=== PATIENT | male | born 1980 | race Caucasian/White ===

== ENCOUNTER → 2017-02-13 | Outpatient (CLI) | payer BC ==
[~2017-02-13] MED LIST: CLR10 PO; ENOX1INJ9 SQ; MULT-506 PO; OXYC-57 PO
== END | disposition home or self-care (01) ==
LOC: C.RDSM 13:13
PROVIDERS: ATTEND Physical Medicine & Rehabilitation Sports Medicine
DX: M25.562 Pain in left knee (principal)

== ENCOUNTER → 2017-02-20 | Outpatient (CLI) | payer BC ==
--- NOTE | 2017-02-20 10:11 | DIAGNOSTIC IMAGING REPORT ---
ORBIT RADIOGRAPHS 3 VIEWS HISTORY: pre-MRI screening. COMPARISON: None. FINDINGS: There are no radiopaque foreign bodies identified within the orbits. IMPRESSION: No radiopaque foreign bodies identified within the orbits. Electronically signed by: Taco Gayle M.D. 02/20/2017 10:10 AM Dictated Date/Time: 02/20/2017 10:09 AM
--- NOTE | 2017-02-20 11:39 | DIAGNOSTIC IMAGING REPORT ---
LEFT LOWER EXT JOINT WITHOUT CLINICAL HISTORY: LEFT KNEE PAIN trauma TECHNIQUE: MRI multi axial acquisition COMPARISON STUDY: None FINDINGS: Signal characteristics the osseous structures are unremarkable. A joint effusion is present. There is evidence for prior anterior cruciate ligament repair. There is a high-grade partial/near complete tear of the graft. Posterior cruciate ligament is intact. There is a suprapatellar joint effusion with several synechiae. The patellar articulating surface is intact. The evaluation of the medial compartment demonstrates a focal loss of articular services measuring 7 x 9 mm in maximum cross-sectional dimension of the mid femoral condylar surface. There is slight flattening of the anterior articular services of the lateral femoral condyle compartment but no significant loss of articular surface is present. Medial and lateral menisci appear unremarkable. The collateral ligaments appear intact. IMPRESSION: 1. High-grade partial/near complete tear of the patient's anterior cruciate ligament graft 2. Joint effusion with several suprapatellar synechiae. 3. Focal loss of articular surface of the mid medial femoral condyle with a maximum surface dimension of 9 x 7 mm 4. Slight impaction deformity anterior margin lateral femoral condyle 5. Several small loose bodies primarily of the medial compartment. The above report was generated using voice recognition software. It may contain grammatical, syntax or spelling errors. Electronically signed by: Riccardo Sheets M.D. 02/20/2017 11:37 AM Dictated Date/Time: 02/20/2017 11:27 AM
== END | disposition home or self-care (01) ==
LOC: C.RAD 09:46
PROVIDERS: ATTEND Physical Medicine & Rehabilitation Sports Medicine
DX: S83.512A Sprain of anterior cruciate ligament of left knee, initial encounter (principal); X58.XXXA Exposure to other specified factors, initial encounter

== ENCOUNTER → 2017-04-19 | Day surgery (SDC) | payer BC ==
[2017-03-21 11:32] VITALS: Ht 180.3 cm; Wt 106.8 kg
[~2017-04-19] VITALS: Ht 180.3 cm; Wt 106.8 kg
[~2017-04-19] MED LIST changes: +ATROPINE SULFATE 0.1 MG/ML 5ML SYR IV PRN; +CEFAZOLIN 1000MG/55 ML D5W 55 ML IV SCH; +CEFAZOLIN 2000 MG/60 ML D5W IV SCH; +CEFAZOLIN SOD 1 GM VIAL ONE; +DEXAMETHASONE SOD INJ 4 MG/ML VIAL ONE; +EpHEDrine SULFATE INJ 50 MG/ML AMP IV PRN; +EpINEphrine HCL INJ 1 MG/ML 5ML SYRINGE ONE; +FENTANYL CITRATE INJ 50 MCG/1 ML 2 ML VIAL IV PRN; +FENTANYL CITRATE INJ 50 MCG/1 ML 2 ML VIAL ONE; +HYDROmorphone INJ 1 MG/ML SYR IV PRN; +LACTATED RINGER'S 1000ML 1,000 ML IV SCH; +LIDOCAINE HCL 1% MPF 2 ML VIAL ONE; +LIDOCAINE HCL 2% 2 ML VIAL (20MG/ML) ONE; +LIDOCAINE/EPINEPHRINE 1% INJ 50 ML VIAL ONE; +MIDAZOLAM HCL 1 MG/ML 2ML VIAL ONE; +MoRPHine SULFATE 2 MG/ML CARP IV PRN; +MoRPHine SULFATE 4 MG/ML 1 ML CARP\\VIAL IV PRN; +ONDANSETRON INJ 2 MG/ML 2 ML VIAL IV PRN; +ONDANSETRON INJ 2 MG/ML 2 ML VIAL ONE; +OXYCODONE/ACETAMINOPHEN 5-325 TAB PO PRN; +PROMETHAZINE HCL INJ 12.5 MG in SODIUM CHLORIDE 0.9% 50ML 50 ML IV PRN; +PROPOFOL IV EMULSION 10 MG/ML 20 ML VIAL IV ONE; +ROPIVACAINE 0.5% 5 MG/ML 30 ML VIAL ONE; +SODIUM CHLORIDE 0.9% 1000ML 1,000 ML IV SCH; +TRAMADOL HCL 50 MG TAB ONE
--- NOTE | 2017-04-19 08:17 | History & Physical Bridge Note ---
H&P Re-Evaluation Bridge Note: I have examined the patient, reviewed the History & Physical and in the interval since the performance of the History & Physical I have noted the following changes of clinical significance: No changes noted
--- NOTE | 2017-04-19 13:01 | [facility] Operative Report ---
Operative Report Operative Date Apr 19, 2017. 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 Rupture of Anterior Cruciate Ligament reconstruction graft. Post-Operative Diagnosis same as preop Procedure(s) Performed Left Knee Arthroscopy, bone grafting of femoral and tibial anterior cruciate ligament tunnels, partial lateral menisectomy, extensive debridement Surgeon Dr. Buenrostro Cone Machine Operator Surgeon(s) QUINN Torres Estimated Blood Loss 50 mL Findings Complete rupture of left knee anterior cruciate ligament graft. Longitudinal white on white lateral meniscus tear. Lysis of the tibial greater than femoral tunnel. Medial meniscal deficiency. 15 mm x 25 mm grade 3 and 4 chondrosis medial femoral condyle. Specimens none per surgeon Drains none Anesthesia laryngeal mask with peripheral nerve block Complication(s) None Disposition Recovery Room / PACU Implants Allogenic bone graft Indications Since a 36-year-old male status post anterior cruciate ligament reconstruction. He has reported knee pain. He is status post a partial medial meniscectomy previously. His evaluation shows clinical insufficiency of the anterior cruciate ligament ligament graft. There is not accessory ligament damage. He does not have radiographic arthrosis but the MRI shows absence of the medial meniscus and medial compartment chondrosis. His alignment is relatively neutral. The femoral tunnel is not terribly lytic. Biointerference screws were utilized previously with a patellar tendon autograft. The tibial tunnel is notably lytic and has a AP sagittal diameter of approximately 14 mm on MRI. I discussed with the patient options including proximal tibial osteotomy to offload his disease medial compartment. Revision anterior cruciate ligament reconstruction. I informed him that because of the lysis of the tunnel that bone grafting and a staged procedure may be necessary. Description of Procedure Informed consent was obtained. The patient identified as Lyle. He identified the operative site as the left knee. I marked with my initials. Preoperative surgical timeout was performed. Appropriate dose of IV antibiotics was given. He was taken to the operating room positioned supine on the operating room table. A laryngeal mask anesthetic was administered. DVT prophylaxis intraoperatively with foot pumps and postoperatively with early mobility and Lovenox. A peripheral nerve block was given. A lateral post was used for stressing the knee a tourniquet was applied to the left thigh but not inflated during the case. The left lower extremity was prepped and draped in the usual sterile fashion. He had a moderate left knee effusion. There is a grade 2 pivot shift with a 2+ positive Raquel he had 1+ MCL laxity neutral alignment intact LCL and PCL equal to the opposite side. Prior portals were utilized were appropriate. Inferolateral viewing portal superior lateral outflow portal and inferomedial working portals were established. Dayanara arthroscopy was performed. The trochlea showed a longitudinal fissure without any full-thickness defect there were some rate 1 change of the patella otherwise normal. There were multiple chondral loose bodies noted about the knee and these were evacuated as encountered. These were several millimeters in size but others were 5-10 mm in size. Pulsatile hiatus was normal. Examination of the intercondylar notch revealed complete disruption of the anterior cruciate ligament ligament graft with an empty lateral wall sign. There was regrowth of the lateral notch where a previous notchplasty was performed. In the lateral compartment there were grade 1 changes of the lateral tibial plateau the lateral femoral condyle was normal. Chondral debris in the back of the knee was debrided. There was a longitudinal tear about 1-1/2 cm in length involving the posterior horn of the lateral meniscus this was 10 mm from the meniscal capsular junction in the white white zone with what appeared to be friable chronic tissue. This was debrided very easily with the shaver and basket forceps. Centimeter of posterior horn rim remained intact along with at least 7 mm at the popliteal hiatus. The hiatus was normal. There was some fraying of the anterior horn of the lateral meniscus which was pointed out on the MRI but no significant tearing. In the medial compartment the medial meniscus was completely absent. I did note several very small metallic fragments in the knee 2 of these were in the posterior portion of the lateral compartment they were somewhat attached to synovium and these were debrided with shaver. I did note one in the medial compartment which was somewhat incarcerated were buried within the tibial articular cartilage. I attempted to extract this using an 18-gauge spinal needle of but did not have any success and felt that further damage would be done to the cartilage by attempting to do so. Appeared to be actually embedded within the cartilage and was not on the surface. The medial femoral condyle demonstrated large area of grade 3 and 4 chondrosis which measured 15 mm wide and 25 mm in length for a total square centimeter area of 3.75. Millimeter squared. Given that there was complete absence of the medial meniscus I did not think that microfracture or autologous chondrocyte implantation would be viable options. If the compartment was offloaded perhaps a microfracture might be helpful. Middle chondroplasty was performed of the medial femoral condyle around the margins to debride any loose fragments. In the intercondylar area the remnant of the anterior cruciate ligament graft was debrided. The regrowth lateral wall was debrided to improve visualization. The PCL was normal. Identified the femoral tunnel and debrided this area. There was a small channel which went superior and lateral. After the tibial tunnel had been prepared I went ahead and through the tibial tunnel debrided this channel more thoroughly. It initially was about 5 mm in diameter but just with probing and use of a reamer under hand power this easily 1 up to a size 10 mm. Probably because of the previous use of biointerference screws. The tunnel was about just over 20 mm in depth. It was well contained. It was located at about the 1 o'clock position in the intercondylar notch. The prior tunnel had been drilled transtibial he. I then took a 10 mm bone dowel and the over a guidewire which had been drilled through and through the tibial tunnel femoral tunnel and out the femoral anteriorly packed a bone dowel into place. The back and the bone dial fractured during insertion and required removal of these portions and impaction of the larger pieces into the defect which completely filled the hole area I debrided any loose bone fragments there around and I inspected the thoroughly throughout the knee particularly in the back of the lateral compartment to ensure that there were no bone graft within the knee. It the end of the procedure the laurie on through need a pickup loose debris in all compartments of the knee which were visually inspected. After doing the femoral tunnel I then went ahead and the bone grafted the tibial tunnel. This was previously prepared by making a 5 cm longitudinal incision identifying the patellar tendon after electrocautery down full- thickness through the skin. Subperiosteal exposure medial to the tibial tubercle was performed until the channel was identified. I guidepin was inserted through the small orifice. I then used progressive reamers up to size 12 to debride the tibial tunnel. I alternated hand reaming with's of curet and shaver. Intra-articular entrance of the tibial tunnel was about a 12. Anatomically was fairly within the center of the anterior cruciate ligament perhaps a slight bit anterior. Central and distal portions were probably 14-15 mm in diameter due to tunnel lysis. After thoroughly debriding the tunnel down to what appeared to be healthy bone with removal. All the soft tissue. No interference screw fragments were noted. I then went ahead and used a 12 mm bone dowel and over impacted it into the knee. The bone dowels 33 mm in length. This left about 15 mm as the tunnel was about 45 mm in length. I then took cancellus bone chips morselized them In some demineralized bone matrix and the finger and instrument impacted this into the tibial tunnel. I then went back inside the knee I confirmed that the femoral bone graft was intact I looked throughout the knee to ensure that there is no further loose bodies were bone graft fragments present. I then went ahead and used the shaver as a bur to her down the prominent tip of the tibial bone plug and confirmed that it did not impinge on the femur. The deep of tissues were closed over the bone graft area. I thoroughly inspected irrigated and manually debrided any bone fragments from the subcutaneous tissues which were closed with 2-0 Vicryl and koby. Nylon was applied for the skin. 4-0 nylon. A soft sterile dressing was applied along with a Ky wrap. The patient was placed in was knee immobilizer. Patient was awakened from anesthesia without difficulty and taken to the recovery room in stable condition. There were no specimens or complications. Counts were correct in the case. Blood loss was probably 50 mL. The tourniquet was not utilized. At the conclusion operation I spoke the patient's father informed her my findings gave detailed postoperative instructions. He' ll be rehabilitated according to a simple knee arthroscopy protocol. He will be partial weightbearing for now and can have range of motion as tolerated. He will begin his Lovenox for DVT prophylaxis in the morning I attest to the content of the Intraoperative Record and any orders documented therein. Any exceptions are noted below.
--- NOTE | 2017-04-19 13:03 | Discharge Instructions-SurgCtr ---
Discharge Instructions Date of Service Apr 19, 2017. Visit Reason for Visit: Left Knee Acl Graft Tear Discharge Discharge Diagnosis / Problem: left knee anterior cruciate ligament graft tear Discharge Goals Goal(s): Decrease discomfort, Improve function, Increase independence Activity Recommendations Activity Limitations: per Instructions/Follow-up section Weightbearing Status: Left partial (with crutches) Anesthesia . Post Anesthesia Instructions: If you have had General Anesthesia or IV Sedation: * Do not drive today. * Resume driving when surgeon permits. * Do not make important decisions or sign legal documents today. * Call surgeon for: 1. Temperature elevations greater than 101 degrees F. 2. Uncontrollable pain. 3. Excessive bleeding. 4. Persistent nausea and vomiting. 5. Medication intolerance (nausea, vomiting or rash). * For nausea and vomiting use only clear liquids such as: tea, soda, bouillon until nausea subsides, then gradually increase diet as tolerated. * If you have any concerns or questions, call your surgeon's office. If physician is unavailable and it is an emergency, call 911 or go to the nearest emergency room. . Instructions / Follow-Up Instructions / Follow-Up The following instructions are a useful guide to questions you may have after your Knee surgery. If you have any questions contact the office at . * DRIVING: Driving is not permitted until 3-4 weeks after surgery at a minimum. Please ask your doctor when it is safe to resume driving. If you have an automatic vehicle and your left leg has been operated on, then you may begin driving as soon as you are comfortable and can drive safely. * BATHING: You may shower or sponge-bathe immediately after surgery. The dressing will need to be covered with a plastic bag or plastic wrap until the dressing is changed on the fourth or fifth day after surgery. Once the dressing has been changed on the fourth or fifth day after surgery, you may shower and get the incision wet. * Wash with regular soap and water. * Do not bathe (submerge the incision), soak, swim or use a hot tub until the incision is completely healed over with normal skin and the doctor has given the OK to proceed. * There is no need to apply any ointments, powders or salves to your incision. * Do not apply alcohol or hydrogen peroxide directly to the incision. Diluted peroxide (50:50 mixture with sterile saline) may be used to clean dried blood from around the incision area. WORK/SCHOOL: * You may return to sedentary work or school when you are feeling comfortable. This is usually 3-7 days after surgery. * Expect increased discomfort with increased activity. Continue to elevate and ice the leg as much as possible. DIET: * Resume previous diet. MEDICATIONS: * You will have a prescription for pain medication after surgery. Use the pain pills for severe pain. You may use an anti-inflammatory for less severe pain. * Once the pain pills have run out, try to use the anti-inflammatory. If this is not effective then contact the office for assistance. * The pain medication may cause nausea, constipation and sleepiness. You should see how they affect you before driving or similar activity. * The anti-inflammatory may cause stomach upset and bleeding. If this occurs, let your doctor know immediately . * Some patients may need blood clot prevention. This can be done with either a pill or a simple shot. Your doctor will advise you on when to begin these medications and how to take them. * You were prescribed Lovenox 40 mg subcutaneous daily. Please take your first dose tomorrow morning at 9 AM. You will be on these for 14 days after surgery. * Take a stool softener like Colace or a stimulant like Senokot to prevent constipation. SPECIAL CARE INSTRUCTIONS: The following instructions are a useful guide to questions you may have after your surgery. If you have any questions contact the office at . ICE: * You have the option of an ice cooler, gel packs or ice bags. * If you have an ice cooler, refer to the instructions for that device. * If you do not have an ice cooler, then you will need to use ice bags or gel packs. * Do not apply ice directly to the skin. * Use a thin dressing or stockinet between the skin and ice bag. * Apply ice for 20-30 minutes and repeat every 2-4 hours. This is especially important for the first 7-10 days after surgery. * Once the pain improves, use ice as needed. * The ice cooler can be used continuously. ELEVATION: * Keep your leg elevated at or above the level of your heart as much as possible. * Expect some increased discomfort and swelling if you are standing for any length of time. * When lying down, avoid placing anything under your knee. Rather, prop your leg up by placing several pillows under your heel or calf. DRESSING: * Your dressing will be changed at your first therapy appointment approximately 4-5 days after surgery. * Band-Aids, tape strips or gauze may be applied. You may then change your dressing daily. * Always wash your hands prior to touching the incision area. * Reapply dressing followed by the Ky wrap or Tubi-mechanic driver stockinet, ice cooling pad and then the brace. * Once the stitches are removed, you may leave the wound open to air or cover with an Ky Bandage or Tubi-mechanic driver stockinet. * If you have been given a white elastic stocking (CURTIS hose), wear as much as possible for the first 1-3 weeks depending on swelling. * Expect some bloody drainage for the first few days after surgery. * Leave the tape strips in place for 5-7 days. * Band-Aids and gauze may be changed daily. CRUTCHES: * You will need to use crutches after surgery. * Until your first doctor's appointment, you must use your crutches at all times when walking and should put no more than 50% of your normal weight on the surgical leg. BRACE: * After surgery, you will be placed into a range of motion brace locked with your leg straight. This brace is to be worn at all times when walking (even with the crutches) and sleeping until your first doctors appointment. * The brace may be removed for therapy. * After your first therapy appointment, your therapist will open the brace to allow bending of the knee once your muscles are working better. * Until your first doctor's appointment, you should sleep with your brace locked with your knee fully straight. * If you have chosen to use a functional ACL brace then this brace will be supplied about 2-3 months after your surgery. During that time, you will attend therapy 2- 3 times per week. You will also need to do daily exercises for range of motion and strength as instructed. PROBLEMS/QUESTIONS: * If you have any problems such as severe pain, numbness, tingling or high fevers or if you have any questions, please contact the office at [phone]. * It is not uncommon to have some numbness and tingling after the surgery especially if you have had a nerve block done. This should gradually improve over the first 1- 2 days. If this persists longer or worsens then contact the office. FOLLOW UP VISIT: * If not already scheduled, please call the office at to schedule follow-up appointments for approximately 10 days and one month after surgery followed by monthly appointments thereafter. * You have a physical therapy appointment on 04/23/2017 at 10:30 AM * You have a follow-up appointment scheduled with Dr. Buenrostro on 05/02/2017 at 1:00 PM. Please call [phone] with any problems, questions, or concerns. Diet Recommendations Home Diet: no limitations, resume previous diet Procedures Procedures Performed: Left Knee Arthroscopy, bone grafting of femoral and tibial anterior cruciate ligament tunnels, partial medial menisectomy, extensive debridement Pending Studies Studies pending at discharge: no Medical Emergencies . Who to Call and When: Medical Emergencies: If at any time you feel your situation is an emergency, please call 911 immediately. . Non-Emergent Contact Non-Emergency issues call your: Surgeon Call Non-Emergent contact if: temperature is above 101, your pain is not controlled, your pain is concerning you, wound has increased drainage, wound has increased redness, wound has increased pain, you have any medication questions . . "Provider Documentation" section prepared by Selina Dial. . [place] Drug Monitoring Program Search Results: patient reviewed within database, no issues identified
--- NOTE | 2017-04-19 13:07 | [facility] Operative Report ---
Operative Report Operative Date Apr 19, 2017. 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 Rupture of Anterior Cruciate Ligament reconstruction graft. Post-Operative Diagnosis Same as preop; lateral meniscal tear Procedure(s) Performed Left Knee Arthroscopy, bone grafting of femoral and tibial anterior cruciate ligament tunnels, partial lateral menisectomy, extensive debridement Surgeon Dr. Buenrostro Assisted Living Director Surgeon(s) Selina Dial PA-C Estimated Blood Loss 50 mL Findings Lateral meniscal tear, grade 3 and 4 changes of medial femoral condyle, anterior cruciate ligament tear Specimens none per surgeon Drains none Anesthesia laryngeal mask with peripheral nerve block Complication(s) None Disposition Recovery Room / PACU (stable) Indications Patient is a 36-year-old male who injured his left knee a few months ago. He presented to our office complaining of left knee pain. Failed conservative treatment. X-rays taken in and MRI obtained and he was found to have medial chondrosis and an anterior cruciate ligament graft tear. Surgical intervention was discussed and he wished to proceed with surgery. Risks and complications were discussed. Informed consent was obtained. Description of Procedure Patient was taken to the operating room and placed under general anesthesia. He was also given a peripheral nerve block preoperatively. He was given 2 g of IV Ancef for surgical prophylaxis. Timeout was performed. He was prepped and draped in routine sterile fashion. I was present during the entire case, please see Dr. Buenrostro's operative report for further detail. He was awakened and transferred to the recovery room in stable condition. I attest to the content of the Intraoperative Record and any orders documented therein. Any exceptions are noted below.
--- NOTE | 2017-04-19 14:51 | Anesthesia Progress Nt - [facility] ---
Anesthesia Post Op Note Date & Time Apr 19, 2017 at 14:51 Vital Signs Pain Intensity: 6 Vital Signs Past 12 Hours Date Time Temp Pulse Resp B/P (MAP) Pulse Ox O2 Delivery O2 Flow Rate FiO2 04/19/17 14:12 72 18 97 04/19/17 14:12 71 18 04/19/17 14:11 120/79 04/19/17 14:11 36.2 70 20 120/79 97 Room Air 04/19/17 14:07 56 14 04/19/17 14:07 57 14 96 04/19/17 14:06 121/77 04/19/17 14:02 61 14 04/19/17 14:02 61 14 96 04/19/17 14:01 122/75 04/19/17 13:57 58 14 95 04/19/17 13:57 56 14 04/19/17 13:56 114/76 04/19/17 13:52 75 10 96 04/19/17 13:52 75 10 04/19/17 13:51 115/81 04/19/17 13:47 69 19 96 04/19/17 13:47 69 19 04/19/17 13:46 128/85 04/19/17 13:42 55 13 99 04/19/17 13:42 55 13 04/19/17 13:41 123/75 04/19/17 13:37 60 14 04/19/17 13:37 59 14 98 04/19/17 13:36 118/78 04/19/17 13:32 65 14 96 04/19/17 13:32 65 14 04/19/17 13:31 119/82 04/19/17 13:27 75 19 95 04/19/17 13:27 72 19 04/19/17 13:26 127/80 04/19/17 13:22 61 14 04/19/17 13:22 61 14 97 04/19/17 13:21 117/71 04/19/17 13:17 61 13 98 04/19/17 13:17 60 13 04/19/17 13:16 115/70 04/19/17 13:12 71 10 04/19/17 13:12 72 10 99 04/19/17 13:11 111/59 04/19/17 13:07 61 13 99 04/19/17 13:07 61 13 04/19/17 13:06 120/66 04/19/17 13:02 69 12 100 04/19/17 13:02 68 12 04/19/17 13:01 112/71 04/19/17 12:57 59 10 99 04/19/17 12:57 59 10 04/19/17 12:56 115/72 04/19/17 12:55 36.2 71 16 115/72 99 Mask 6 04/19/17 08:47 53 12 04/19/17 08:47 54 12 97 04/19/17 08:46 108/74 04/19/17 08:44 55 13 97 04/19/17 08:44 54 13 04/19/17 08:41 120/65 04/19/17 08:39 56 12 04/19/17 08:39 56 12 95 04/19/17 08:36 120/70 04/19/17 08:34 56 13 98 04/19/17 08:34 56 13 04/19/17 08:31 123/72 04/19/17 08:29 53 16 99 04/19/17 08:29 53 16 04/19/17 07:26 131/78 04/19/17 07:15 36.2 59 16 124/81 (95) 98 Room Air Notes Mental Status: alert / awake / arousable, participated in evaluation Pt Amnestic to Procedure: Yes Nausea / Vomiting: adequately controlled Pain: adequately controlled Airway Patency, RR, SpO2: stable & adequate BP & HR: stable & adequate Hydration State: stable & adequate Anesthetic Complications: no major complications apparent
[2017-04-19 15:35] VITALS: BP 122/77; PULSE 50; TEMP 36.6; O2SAT 97
== END | disposition home or self-care (01) ==
LOC: X.SURG 06:57
PROVIDERS: ATTEND Physical Medicine & Rehabilitation Sports Medicine
DX: M22.2X2 Patellofemoral disorders, left knee (principal); T84.89XA Other specified complication of internal orthopedic prosthetic devices, implants and grafts, initial encounter; Y83.2 Surgical operation with anastomosis, bypass or graft as the cause of abnormal reaction of the patient, or of later complication, without mention of misadventure at the time of the procedure; J45.909 Unspecified asthma, uncomplicated; Z98.890 Other specified postprocedural states; Z90.89 Acquired absence of other organs; E66.9 Obesity, unspecified; Z68.33 Body mass index [BMI] 33.0-33.9, adult

== ENCOUNTER → 2017-05-02 | Outpatient (CLI) | payer BC ==
[~2017-05-02] MED LIST changes: -ATROPINE SULFATE 0.1 MG/ML 5ML SYR IV PRN; -CEFAZOLIN 1000MG/55 ML D5W 55 ML IV SCH; -CEFAZOLIN 2000 MG/60 ML D5W IV SCH; -CEFAZOLIN SOD 1 GM VIAL ONE; -DEXAMETHASONE SOD INJ 4 MG/ML VIAL ONE; -EpHEDrine SULFATE INJ 50 MG/ML AMP IV PRN; -EpINEphrine HCL INJ 1 MG/ML 5ML SYRINGE ONE; -FENTANYL CITRATE INJ 50 MCG/1 ML 2 ML VIAL IV PRN; -FENTANYL CITRATE INJ 50 MCG/1 ML 2 ML VIAL ONE; -HYDROmorphone INJ 1 MG/ML SYR IV PRN; -LACTATED RINGER'S 1000ML 1,000 ML IV SCH; -LIDOCAINE HCL 1% MPF 2 ML VIAL ONE; -LIDOCAINE HCL 2% 2 ML VIAL (20MG/ML) ONE; -LIDOCAINE/EPINEPHRINE 1% INJ 50 ML VIAL ONE; -MIDAZOLAM HCL 1 MG/ML 2ML VIAL ONE; -MoRPHine SULFATE 2 MG/ML CARP IV PRN; -MoRPHine SULFATE 4 MG/ML 1 ML CARP\\VIAL IV PRN; -ONDANSETRON INJ 2 MG/ML 2 ML VIAL IV PRN; -ONDANSETRON INJ 2 MG/ML 2 ML VIAL ONE; -OXYCODONE/ACETAMINOPHEN 5-325 TAB PO PRN; -PROMETHAZINE HCL INJ 12.5 MG in SODIUM CHLORIDE 0.9% 50ML 50 ML IV PRN; -PROPOFOL IV EMULSION 10 MG/ML 20 ML VIAL IV ONE; -ROPIVACAINE 0.5% 5 MG/ML 30 ML VIAL ONE; -SODIUM CHLORIDE 0.9% 1000ML 1,000 ML IV SCH; -TRAMADOL HCL 50 MG TAB ONE
== END | disposition home or self-care (01) ==
LOC: C.RDSM 13:44
PROVIDERS: ATTEND Physical Medicine & Rehabilitation Sports Medicine
DX: S83.512A Sprain of anterior cruciate ligament of left knee, initial encounter (principal); X58.XXXA Exposure to other specified factors, initial encounter

== ENCOUNTER → 2017-07-09 | Outpatient (CLI) | payer BC ==
[~2017-07-09] MED LIST changes: -ENOX1INJ9 SQ; -OXYC-57 PO
--- NOTE | 2017-07-09 16:44 | DIAGNOSTIC IMAGING REPORT ---
L LOWER EXTREMITY WITHOUT CLINICAL HISTORY: 37 years-old Male presenting with L ACL TEAR. TECHNIQUE: Multidetector CT of the left knee was performed without the use of intravenous contrast. IV contrast: None. A dose lowering technique was used consistent with the principles of ALARA (as low as reasonably achievable). COMPARISON: Plain radiographs of the left knee from 05/02/2017 and MR from 02/20/2017. CT DOSE (mGy.cm): The estimated cumulative dose is 289.18 mGy.cm. FINDINGS: Senior Civil Engineer topogram: Unremarkable. Postsurgical changes of anterior cruciate ligament repair. Abnormal radiolucency surrounding both the femoral and tibial anchors. The anterior cruciate ligament graft is poorly visualized. The posterior cruciate ligament is grossly intact. Bone graft material noted along the anterior aspect of the tibial anchor.. Articular osteopenia suggested. Degenerative changes of the medial and patellofemoral compartments with osteophytosis. Prepatellar and infrapatellar subcutaneous edema, nonspecific. Small knee joint effusion. Menisci are poorly visualized on CT. Normal muscle bulk. IMPRESSION: 1. Evidence of radiolucency surrounding the femoral and tibial anchors of prior ACL repair/grafting area this is concerning for loosening or infection. The ACL graft itself would be better visualized with MRI. 2. No acute osseous injury. 3. Degenerative changes of the knee as above. Electronically signed by: Justin Noble M.D. 07/09/2017 4:42 PM Dictated Date/Time: 07/09/2017 4:38 PM
== END | disposition home or self-care (01) ==
LOC: C.CTS 16:17
PROVIDERS: ATTEND Physical Medicine & Rehabilitation Sports Medicine
DX: S83.512D Sprain of anterior cruciate ligament of left knee, subsequent encounter (principal); X58.XXXD Exposure to other specified factors, subsequent encounter; Z98.890 Other specified postprocedural states; R93.7 Abnormal findings on diagnostic imaging of other parts of musculoskeletal system

== ENCOUNTER → 2017-07-19 | Day surgery (SDC) | payer BC ==
[2017-06-19 12:00] VITALS: Ht 180.3 cm; Wt 106.8 kg
[~2017-07-19] VITALS: Ht 180.3 cm; Wt 106.8 kg
[~2017-07-19] MED LIST changes: +ENOX40IN SQ; +TRAM-10 PO
== END | disposition home or self-care (01) ==
LOC: EDSTATUS 10:00 → C.PAT 13:48
PROVIDERS: ATTEND Physical Medicine & Rehabilitation Sports Medicine
DX: S83.512A Sprain of anterior cruciate ligament of left knee, initial encounter (principal); X58.XXXA Exposure to other specified factors, initial encounter; Y93.68 Activity, volleyball (beach) (court)

== ENCOUNTER → 2017-10-08 | Outpatient (CLI) | payer BC ==
[~2017-10-08] MED LIST changes: -ENOX40IN SQ; -TRAM-10 PO
--- NOTE | 2017-10-08 14:25 | DIAGNOSTIC IMAGING REPORT ---
LEFT KNEE CT CT DOSE: 249.96 mGy.cm HISTORY: Evaluate ACL bone graft. LEFT ACL TEAR TECHNIQUE: Multiaxial CT images of the left knee were performed and reformatted in the sagittal and coronal plane without the use of contrast. A dose lowering technique was utilized adhering to the principles of ALARA. COMPARISON: Left knee CT 07/09/2017. FINDINGS: There are again noted postsurgical changes consistent with graft repair of the ACL. The ACL graft is poorly visualized due to the CT technique. Small portion of the bone graft at the femoral tunnel appears well incorporated. The bone graft at the tibial tunnel demonstrates partial fusion of approximately 25% overall fusion. However, the very proximal tip of the tibial tunnel bone graft is essentially completely fused at the level of the tibial plateau. This is unchanged compared to the prior study. There is near complete fusion of the distal/anterior bone graft material within the tibial tunnel which is also unchanged. No acute fracture or dislocation within the knee. Mild subchondral sclerosis at the medial femoral condyle, unchanged. Mild cartilage space are at the lateral patellofemoral joint and within the medial lateral compartments of the knees with tiny marginal osteophytes. This is consistent with mild degenerative change. Small joint effusion which has improved. Mild thickening of the patellar ligament is also improved. This may represent resolving postoperative change. IMPRESSION: 1. There are again noted postoperative changes consistent with graft repair of the ACL. The graft is not well visualized due to CT technique. 2. The bone graft at the femoral tunnel is well incorporated. There is persistent lucency surrounding the bone graft at the tibial tunnel consistent with incomplete fusion. However, the proximal tip of the bone graft at the tibial tunnel is completely fused. No erosive changes to suggest infection. 3. Small joint effusion which has improved. 4. Mild tricompartmental osteoarthritis. Electronically signed by: Taco Gayle M.D. 10/08/2017 2:24 PM Dictated Date/Time: 10/08/2017 2:10 PM
== END | disposition home or self-care (01) ==
LOC: C.CTS 13:46
PROVIDERS: ATTEND Physical Medicine & Rehabilitation Sports Medicine
DX: S83.512D Sprain of anterior cruciate ligament of left knee, subsequent encounter (principal); X58.XXXD Exposure to other specified factors, subsequent encounter; Z98.890 Other specified postprocedural states

== ENCOUNTER → 2017-11-08 | Day surgery (SDC) | payer BC ==
[2017-10-16 11:18] VITALS: Ht 180.3 cm; Wt 106.8 kg
[~2017-11-08] VITALS: Ht 180.3 cm; Wt 106.8 kg
[~2017-11-08] MED LIST changes: +ATROPINE SULFATE 0.1 MG/ML 5ML SYR IV PRN; +CEFAZOLIN 1000MG IV PUSH 7.5 ML IV SCH; +CEFAZOLIN 2000MG IV PUSH 15 ML IV SCH; +CEFAZOLIN IV 1,000 MG in DEXTROSE 5% 50ML 50 ML IV SCH; +DEXAMETHASONE SOD INJ 4 MG/ML VIAL ONE; +ENOX40IN SQ; +EpHEDrine SULFATE INJ 50 MG/ML AMP IV PRN; +EpINEphrine HCL INJ 1 MG/ML 1ML SYRINGE ONE; +FENTANYL CITRATE INJ 50 MCG/1 ML 2 ML VIAL IV PRN; +FENTANYL CITRATE INJ 50 MCG/1 ML 2 ML VIAL ONE; +HYDROmorphone INJ 2 MG/ML SYR/VIAL IV PRN; +LACTATED RINGER'S 1000ML 1,000 ML IV SCH; +LIDOCAINE HCL 1% MPF 5 ML VIAL ONE; +LIDOCAINE HCL 2% 2 ML VIAL (20MG/ML) ONE; +LIDOCAINE/EPINEPHRINE 1% 20 ML VIAL ONE; +MIDAZOLAM HCL 1 MG/ML 2ML VIAL ONE; +MoRPHine SULFATE 2 MG/ML CARP IV PRN; +MoRPHine SULFATE 4 MG/ML 1 ML CARP\\VIAL IV PRN; +ONDANSETRON INJ 2 MG/ML 2 ML VIAL IV PRN; +ONDANSETRON INJ 2 MG/ML 2 ML VIAL ONE; +OXYCODONE/ACETAMINOPHEN 5-325 TAB PO PRN; +PHENYLEPHRINE 100MCG/ML 5ML SYR IV PRN; +PROPOFOL IV EMULSION 10 MG/ML 20 ML VIAL IV ONE; +ROPIVACAINE 0.5% 5 MG/ML 30 ML VIAL ONE; +SODIUM CHLORIDE 0.9% 1000ML 1,000 ML IV SCH; +TRAM-10 PO
--- NOTE | 2017-11-08 10:07 | [facility] Post Operative Brief Note ---
Immediate Operative Summary Operative Date Nov 08, 2017. Pre-Operative Diagnosis Left Anterior Cruciate Ligament graft rupture Post-Operative Diagnosis Same Procedure(s) Performed Left Knee Arthroscopic Anterior Cruciate Ligament Revision With Allograft Surgeon Dr. Buenrostro Compliance Spec Surgeon(s) QUINN Torres Estimated Blood Loss 150ml Findings Consistent with Post-Op Diagnosis Specimens none Drains None Anesthesia Type General Regional Complication(s) none Disposition Accompanied Pt To Recovery: no Disposition: Recovery Room / PACU
--- NOTE | 2017-11-08 10:33 | [facility] Operative Report ---
Operative Report Operative Date Nov 08, 2017. Pre-Operative Diagnosis Left Anterior Cruciate Ligament graft rupture Post-Operative Diagnosis Same Procedure(s) Performed Left Knee Arthroscopic Anterior Cruciate Ligament Revision With Allograft Surgeon Dr. Buenrostro [place] Bone Roller Surgeon(s) QUINN Torres Estimated Blood Loss 150ml Findings Healed bone grafting. Absent medial meniscus. Fibrocartilage formation medial femoral cartilage defect. Specimens none Drains None Anesthesia Laryngeal mask with femoral nerve block. Complication(s) None Disposition Recovery Room / PACU Indications Patient's a 37-year-old male. He had an ACL reconstruction which failed. Bone grafting of the tunnels was performed [address] scan shows evidence of healing. He is taken back to surgery today for a revision ACL reconstruction with allograft. Description of Procedure Informed consent obtained. Patient identified a soft [place]. He identified the operative site as the left knee. I marked with my initials. A preop surgical timeout performed. Preop dose of IV antibiotics was given. He was taken to the operating room positioned supine on the OR table. A laryngeal mask anesthetic and peripheral nerve block were given. The exam under anesthesia revealed range of motion 0-135 with no effusion well-healed incisions a 1+ positive Lockman soft endpoint grade 2 pivot shift knee otherwise stable. DVT prophylaxis with foot pumps intraoperatively and postoperatively he will be placed on Lovenox for 2 weeks bridging over to aspirin. Lovenox will begin the night of surgery. The entire left lower extremity was prepped and draped in usual sterile fashion. A lateral post was used for stressing the knee and a tourniquet was applied to the left thigh. 1% lidocaine with epinephrine was injected into the knee joint fat pad and portal sites preoperatively Prior incisions were utilized were appropriate. Inferolateral viewing portal superior lateral outflow portal and inferomedial working portals were established. Diagnostic arthroscopy was performed. White probable chondral debris was noted throughout the knee and debrided as encountered. Suprapatellar pouch unremarkable. Articular surfaces of the patella normal. Significant scarring in the retropatellar fat pad which was debrided. The notch showed that healing of the bone graft and absence of the ACL. PCL intact. There was a longitudinal groove in the trochlea millimeter to wide and about 2 cm long. Lateral compartment showed evidence of prior partial lateral meniscectomy the chondral surfaces were normal some loose body debris was noted and no debrided posterior lateral compartment normal meniscal root is intact. Medial compartment showed absence of the medial meniscus tibial ventricular articular surface normal. The femoral articular surface which had shown a large area of grade 3 and 4 change previously actually showed what appeared to be some fibrocartilage ingrowth over the entire area there was no exposed bone present. An accessory medial portal was created. The anatomic location of the tibial center of the ACL was identified and marked. The anatomic center of the femoral side was identified and marked after denuding the lateral intercondylar notch of soft tissue and removing some regrowth of prior notchplasty. The femoral bone grafting was noted to be posterior and superior to the plan tunnel location. This was marked just posterior to the 50% width of the condyle and about 8-10 mm up from the posterior cartilage margin. Through the accessory medial portal the knee was placed in a hyperflexed position. A guidepin was introduced and drilled into the after mentioned location. Femoral bone length was 40 mm. A 9 mm socket of 25 mm in depth was made bony debris was cleared of the knee and the tunnel was dilated up to 10. Care was taken to protect the femoral articular cartilage. The Arthrex tibial guide was set at about 57 and placed through the accessory medial portal. An accessory medial incision was made utilizing the prior incision dissecting down to the level of the periosteum in a blunt fashion. Electrocautery utilized as well. A guidepin was introduced. The guidepin initially when and what appeared to be further than the typical length of the bone. It is possible that the pin may have somehow been misdirected perhaps by the bone graft that was there before. When I felt that it was in too far I remove the pin. I readjusted the insertion area and inserted the pin noting the proper depth. The pain went into the correct location was adjusted times want to slightly more posterior which was in the direct center of the stebbins tibial ACL footprint based upon anatomical landmarks. This was then overreamed with a 9 dilated to the 10 soft tissue cleaned of the tunnel entrances and the rasping was performed of the tibia. On both the femoral tibial sides there was excellent bone around the sockets and no evidence of any type of failure of ingrowth of the bone graft or cavities or pockets. The fresh frozen nonirradiated too-BTB allograft was then prepared on the back table. The tendon width was about a 12. The patellar bone block was sized to a 9 x 22 in the tibial block to a 10 x 27. Markings were placed on the block and sutures were inserted through drill holes. Overall length was about 98 mm. The graft was passed in retrograde fashion and securely within the femoral socket. There was no evidence of impingement with range of motion. Through the accessory medial portal 88 x 20 rounded interference screw was inserted anterior to the patellar bone block in the femoral tunnel. Nitinol guidewire graft notch were utilized. The screw was fully advanced and had an excellent bite with excellent stability. Again no evidence of impingement. The knee was held in full extension after cycling for isometry noting that the graft was very asymmetric. About a centimeter the graft protruded distally. Graft not sure and nitinol guidewire were utilized followed by 9 x 20 fully threaded interference screw anterior to the tibial bone block in the tibial tunnel. There was an excellent bite. Lockman negative endpoint firm pivot shift absent. Graft was palpated intra- articularly with excellent tension bony debris was cleaned out of the knee. While the graft was being prepared the tourniquet was let down and then reinflated for graft passage and securing. Once the graft had been secured and passed the tourniquet was then let down again and there was no significant bleeding noted at this point. There was some normal bleeding noted when the tourniquet was let down initially. About a centimeter the bone block protruded distal to the tibial screw this construct was stable to stressing. The portals were closed with 4-0 nylon after removing extraneous stitches. The tibial incision was closed with 2-0 Vicryls and stable. A soft sterile dressing was applied after cleaning the leg with wet and dry sponges followed by full-length Ky wrap and hinged brace locked in extension. Patient is awake from anesthesia without difficulty and taken to the recovery room in stable condition. There were no specimens or complications. Counts were correct in the case. Blood loss was approximately 150 cc. At the conclusion of the operation spoke patient's father informed him of my findings and gave detailed postoperative instructions. He will be rehabilitated according to the revision ACL protocol. We will start his Lovenox tonight. I attest to the content of the Intraoperative Record and any orders documented therein. Any exceptions are noted below.
--- NOTE | 2017-11-08 10:35 | Discharge Instructions-SurgCtr ---
Discharge Instructions Date of Service Nov 08, 2017. Visit Reason for Visit: Left Knee Acl Graft Rupture Discharge Discharge Diagnosis / Problem: Left knee ACL graft rupture Discharge Goals Goal(s): Decrease discomfort, Improve function, Increase independence Medications Stopped Medications Name(s): held ibuprofen for one week Restart Stopped Medication(s): Okay to continue ibuprofen after surgery. Activity Recommendations Activity Limitations: per Instructions/Follow-up section Weightbearing Status: Left partial Anesthesia . Post Anesthesia Instructions: If you have had General Anesthesia or IV Sedation: * Do not drive today. * Resume driving when surgeon permits. * Do not make important decisions or sign legal documents today. * Call surgeon for: 1. Temperature elevations greater than 101 degrees F. 2. Uncontrollable pain. 3. Excessive bleeding. 4. Persistent nausea and vomiting. 5. Medication intolerance (nausea, vomiting or rash). * For nausea and vomiting use only clear liquids such as: tea, soda, bouillon until nausea subsides, then gradually increase diet as tolerated. * If you have any concerns or questions, call your surgeon's office. If physician is unavailable and it is an emergency, call 911 or go to the nearest emergency room. . Instructions / Follow-Up Instructions / Follow-Up The following instructions are a useful guide to questions you may have after your Anterior Cruciate Ligament Reconstruction surgery. If you have any questions contact the office at . ACTIVITY RECOMMENDATIONS: * Heavy manual labor is not permitted until 4-6 months after surgery. * Sports are not permitted until 6-9 months after surgery. * Return to activity is individualized. * DRIVING: Driving is not permitted until 3-4 weeks after surgery at a minimum. Please ask your doctor when it is safe to resume driving. If you have an automatic vehicle and your left leg has been operated on, then you may begin driving as soon as you are comfortable and can drive safely. * BATHING: You may shower or sponge-bathe immediately after surgery. The dressing will need to be covered with a plastic bag or plastic wrap until the dressing is changed on the fourth or fifth day after surgery. Once the dressing has been changed on the fourth or fifth day after surgery, you may shower and get the incision wet. * Wash with regular soap and water. * Do not bathe (submerge the incision), soak, swim or use a hot tub until the incision is completely healed over with normal skin and the doctor has given the OK to proceed. * There is no need to apply any ointments, powders or salves to your incision. * Do not apply alcohol or hydrogen peroxide directly to the incision. Diluted peroxide (50:50 mixture with sterile saline) may be used to clean dried blood from around the incision area. WORK/SCHOOL: * You may return to sedentary work or school when you are feeling comfortable. This is usually 3-7 days after surgery. * Expect increased discomfort with increased activity. Continue to elevate and ice the leg as much as possible. DIET: * Resume previous diet. MEDICATIONS: * You will have a prescription for pain medication and an anti-inflammatory medication after surgery. Use the pain pills for severe pain and the anti-inflammatory for less severe pain. * Once the pain pills have run out, try to use the anti-inflammatory. If this is not effective then contact the office for assistance. * The pain medication may cause nausea, constipation and sleepiness. You should see how they affect you before driving or similar activity. * The anti-inflammatory may cause stomach upset and bleeding. If this occurs, let your doctor know immediately . * Some patients may need blood clot prevention. This can be done with either a pill or a simple shot. Your doctor will advise you on when to begin these medications and how to take them. *Start Lovenox tonight at 9 PM. Take once daily 14 days. Start aspirin 325 mg 1 tab p.o. twice daily 2 weeks after completion of Lovenox. * Do not take aspirin or other anti-inflammatory products (i.e. Advil or Aleve ) if taking blood thinner medication. * Take a stool softener like Colace or a stimulant like Senokot to prevent constipation. LABS: *You need to obtain a CBC on Sunday, November 12, 2017. You can do this before after physical therapy appointment that is already scheduled. A prescription is provided. SPECIAL CARE INSTRUCTIONS: The following instructions are a useful guide to questions you may have after your surgery. If you have any questions contact the office at . ICE: * You have the option of an ice cooler, gel packs or ice bags. * If you have an ice cooler, refer to the instructions for that device. * If you do not have an ice cooler, then you will need to use ice bags or gel packs. * Do not apply ice directly to the skin. * Use a thin dressing or stockinet between the skin and ice bag. * Apply ice for 20-30 minutes and repeat every 2-4 hours. This is especially important for the first 7-10 days after surgery. * Once the pain improves, use ice as needed. * The ice cooler can be used continuously. ELEVATION: * Keep your leg elevated at or above the level of your heart as much as possible. * Expect some increased discomfort and swelling if you are standing for any length of time. * When lying down, avoid placing anything under your knee. Rather, prop your leg up by placing several pillows under your heel or calf. DRESSING: * Your dressing will be changed at your first therapy appointment approximately 4-5 days after surgery. * Band-Aids, tape strips or gauze may be applied. You may then change your dressing daily. * Always wash your hands prior to touching the incision area. * Reapply dressing followed by the Ky wrap or Tubi-tab cutter stockinet, ice cooling pad and then the brace. * Once the stitches are removed, you may leave the wound open to air or cover with an Ky Bandage or Tubi-tab cutter stockinet. * If you have been given a white elastic stocking (CURTIS hose), wear as much as possible for the first 1-3 weeks depending on swelling. * Expect some bloody drainage for the first few days after surgery. * Leave the tape strips in place for 5-7 days. * Band-Aids and gauze may be changed daily. CRUTCHES: * You will need to use crutches after surgery. * Until your first doctor's appointment, you must use your crutches at all times when walking and should put no more than 50% of your normal weight on the surgical leg. * After your first doctor's appointment, you may gradually progress to full weight bearing and discontinue crutches as tolerated under the guidance of your therapist. * If you have had a microfracture procedure done, you may be advised to be non- weight bearing for up to 6 weeks. BRACE: * After surgery, you will be placed into a range of motion brace locked with your leg straight. This brace is to be worn at all times when walking (even with the crutches) and sleeping until your first doctors appointment. * The brace may be removed for therapy. * After your first therapy appointment, your therapist will open the brace to allow bending of the knee once your muscles are working better. * Until your first doctor's appointment, you should sleep with your brace locked with your knee fully straight. * If you have chosen to use a functional ACL brace then this brace will be supplied about 2-3 months after your surgery. During that time, you will attend therapy 2- 3 times per week. You will also need to do daily exercises for range of motion and strength as instructed. PROBLEMS/QUESTIONS: * If you have any problems such as severe pain, numbness, tingling or high fevers or if you have any questions, please contact the office at [phone]. * It is not uncommon to have some numbness and tingling after the surgery especially if you have had a nerve block done. This should gradually improve over the first 1- 2 days. If this persists longer or worsens then contact the office. FOLLOW UP VISIT: * If not already scheduled, please call the office at to schedule follow-up appointments for approximately 10 days and one month after surgery followed by monthly appointments thereafter. *You have a physical therapy appointment on November 12, 2017 at 10:30 AM. *you have a follow-up appointment scheduled with Dr. Buenrostro on November 19, 2017 at 11:45 AM. Diet Recommendations Home Diet: no limitations, resume previous diet Procedures Procedures Performed: Left Knee Arthroscopic Anterior Cruciate Ligament Revision With Allograft Pending Studies Studies pending at discharge: no Medical Emergencies . Who to Call and When: Medical Emergencies: If at any time you feel your situation is an emergency, please call 911 immediately. . Non-Emergent Contact Non-Emergency issues call your: Surgeon Call Non-Emergent contact if: temperature is above 101, your pain is not controlled, wound has increased drainage, wound has increased redness, wound has increased pain, you have any medication questions . . "Provider Documentation" section prepared by Selina Dial. . [place] Drug Monitoring Program Search Results: patient reviewed within database, no issues identified
--- NOTE | 2017-11-08 10:41 | [facility] Operative Report ---
Operative Report Operative Date Nov 08, 2017. Pre-Operative Diagnosis Left Anterior Cruciate Ligament graft rupture Post-Operative Diagnosis Same Procedure(s) Performed Left Knee Arthroscopic Anterior Cruciate Ligament Revision With Allograft Surgeon Dr. Buenrostro [employer] Specialist Surgeon(s) QUINN Torres Estimated Blood Loss 150ml Specimens none Drains None None Anesthesia Type General Regional Complication(s) none Disposition no Recovery Room / PACU Indications Patient is a 37-year-old male status post an ACL graft rupture. He underwent left knee arthroscopy and hardware removal and bone grafting in April with Dr. Buenrostro in preparation for reconstruction. He recovered well from his previous surgery and CT showed healing of the bone graft sites. He wished to proceed with reconstruction of his ACL. Surgery was scheduled. Risks and complications were discussed with the patient and informed consent was obtained. Description of Procedure She was taken to the operating room and placed under general anesthesia. He was given a peripheral nerve block. He was given 2 g of IV Ancef for surgical prophylaxis. Timeout was performed and he was prepped and draped in routine sterile fashion. I was present during the entire case, please see Dr. Buenrostro 's operative report for further detail. Patient was awakened and transferred to the recovery room in stable condition. I attest to the content of the Intraoperative Record and any orders documented therein. Any exceptions are noted below.
[2017-11-08 11:16] VITALS: TEMP 36.2
[2017-11-08 12:15] VITALS: BP 132/85; PULSE 68; O2SAT 96
--- NOTE | 2017-11-08 12:31 | Anesthesia Progress Nt - [facility] ---
Anesthesia Post Op Note Date & Time Nov 08, 2017 at 12:31 Vital Signs Pain Intensity: 4 Vital Signs Past 12 Hours Date Time Temp Pulse Resp B/P (MAP) Pulse Ox O2 Delivery O2 Flow Rate FiO2 11/08/17 12:15 68 20 132/85 (101) 96 Room Air 11/08/17 11:16 36.2 79 20 143/87 (105) 95 Room Air 11/08/17 11:08 36.2 71 16 131/89 95 Room Air 11/08/17 10:29 37.2 72 20 138/81 99 Mask 6 11/08/17 06:14 36.4 61 20 132/70 (90) 96 Room Air Notes Mental Status: alert / awake / arousable, participated in evaluation Pt Amnestic to Procedure: Yes Nausea / Vomiting: adequately controlled Pain: adequately controlled Airway Patency, RR, SpO2: stable & adequate BP & HR: stable & adequate Hydration State: stable & adequate Anesthetic Complications: no major complications apparent
--- NOTE | 2017-11-08 16:08 | Progress Note ---
Progress Note Date of Service Nov 08, 2017. Progress Note The patient was seen in recovery. His left foot was warm and pink. He had 1+ dorsalis pedis and posterior tib pulses equal to the opposite side.
== END | disposition home or self-care (01) ==
LOC: X.SURG 06:06
PROVIDERS: ATTEND Physical Medicine & Rehabilitation Sports Medicine
DX: M23.52 Chronic instability of knee, left knee (principal); J45.909 Unspecified asthma, uncomplicated; Z86.718 Personal history of other venous thrombosis and embolism; Z83.3 Family history of diabetes mellitus

== ENCOUNTER → 2017-11-19 | Outpatient (CLI) | payer BC ==
[~2017-11-19] MED LIST changes: -ATROPINE SULFATE 0.1 MG/ML 5ML SYR IV PRN; -CEFAZOLIN 1000MG IV PUSH 7.5 ML IV SCH; -CEFAZOLIN 2000MG IV PUSH 15 ML IV SCH; -CEFAZOLIN IV 1,000 MG in DEXTROSE 5% 50ML 50 ML IV SCH; -DEXAMETHASONE SOD INJ 4 MG/ML VIAL ONE; -EpHEDrine SULFATE INJ 50 MG/ML AMP IV PRN; -EpINEphrine HCL INJ 1 MG/ML 1ML SYRINGE ONE; -FENTANYL CITRATE INJ 50 MCG/1 ML 2 ML VIAL IV PRN; -FENTANYL CITRATE INJ 50 MCG/1 ML 2 ML VIAL ONE; -HYDROmorphone INJ 2 MG/ML SYR/VIAL IV PRN; -LACTATED RINGER'S 1000ML 1,000 ML IV SCH; -LIDOCAINE HCL 1% MPF 5 ML VIAL ONE; -LIDOCAINE HCL 2% 2 ML VIAL (20MG/ML) ONE; -LIDOCAINE/EPINEPHRINE 1% 20 ML VIAL ONE; -MIDAZOLAM HCL 1 MG/ML 2ML VIAL ONE; -MoRPHine SULFATE 2 MG/ML CARP IV PRN; -MoRPHine SULFATE 4 MG/ML 1 ML CARP\\VIAL IV PRN; -ONDANSETRON INJ 2 MG/ML 2 ML VIAL IV PRN; -ONDANSETRON INJ 2 MG/ML 2 ML VIAL ONE; -OXYCODONE/ACETAMINOPHEN 5-325 TAB PO PRN; -PHENYLEPHRINE 100MCG/ML 5ML SYR IV PRN; -PROPOFOL IV EMULSION 10 MG/ML 20 ML VIAL IV ONE; -ROPIVACAINE 0.5% 5 MG/ML 30 ML VIAL ONE; -SODIUM CHLORIDE 0.9% 1000ML 1,000 ML IV SCH
== END | disposition home or self-care (01) ==
LOC: C.RDSM 15:10
PROVIDERS: ATTEND Physical Medicine & Rehabilitation Sports Medicine
DX: S83.512D Sprain of anterior cruciate ligament of left knee, subsequent encounter (principal); X58.XXXD Exposure to other specified factors, subsequent encounter